=== PATIENT | female | born 1965 | race Caucasian/White ===

== ENCOUNTER → 2017-02-08 | Outpatient (CLI) | payer OTHER | LOC: RAD 02-05 08:00 | DX: R13.10 Dysphagia, unspecified (principal); K44.9 Diaphragmatic hernia without obstruction or gangrene; K21.9 Gastro-esophageal reflux disease without esophagitis | CPT/HCPCS: 74246 ==

== ENCOUNTER 2017-04-03 11:39 | Emergency (ER) | payer OTHER ==
[2017-04-03 13:13] LABS: HEMOGLOBIN 13.5 gm/dl (12.3-15.3); RED BLOOD COUNT 4.43 M/UL (4.00-5.10); WHITE BLOOD COUNT 8.1 K/UL (4.5-11.0)
[2017-04-03 13:43] LABS: BUN/CREATININE RATIO 14 (0-10)
== END 2017-04-03 14:37 | disposition home or self-care (01) ==
LOC: ER1 11:39
PROVIDERS: Physician Assistant
DX: E03.9 Hypothyroidism, unspecified (principal); R42 Dizziness and giddiness; I10 Essential (primary) hypertension; E07.9 Disorder of thyroid, unspecified; Z90.49 Acquired absence of other specified parts of digestive tract; F17.200 Nicotine dependence, unspecified, uncomplicated; Z88.5 Allergy status to narcotic agent
CPT/HCPCS: 36415; 70450; 71010; 80053; 81001; 82550; 82553; 83874; 84443; 84484; 85025; 93005; 96360; 99284

== ENCOUNTER 2021-05-04 18:32 | Inpatient (IN) | payer OTHER ==
[~2021-05-04] VITALS: Ht 165.1 cm; Wt 116.1 kg
[~2021-05-04 18:32] MED LIST: HYDROCHLOROTHIA25 MG PO; LASIX20 MG PO; PHYSICIANS1000 MCG/1 SC
[2021-05-04 19:11] LABS: HEMOGLOBIN 13.9 gm/dl (12.3-15.3); RED BLOOD COUNT 4.44 M/UL (4.00-5.10); WHITE BLOOD COUNT 11.9 K/UL (4.5-11.0)
[2021-05-04 19:33] LABS: BUN/CREATININE RATIO 13 (0-10)
[2021-05-05 02:29] LABS: HEMOGLOBIN 13.1 gm/dl (12.3-15.3); RED BLOOD COUNT 4.26 M/UL (4.00-5.10); WHITE BLOOD COUNT 10.6 K/UL (4.5-11.0)
[2021-05-05] MEDS ORDERED: DRISDOL1250 MCG PO (12:22)
[2021-05-05] MEDS ORDERED: SYNTHROID137 MCG PO (12:23)
[2021-05-05] MEDS ORDERED: TOPROL XL 50 MG50 MG PO (12:23)
[2021-05-05] MEDS ORDERED: MECLIZINE HCL25 MG PO (12:23)
[2021-05-05] MEDS ORDERED: ALEVE220 MG PO (13:55)
[2021-05-05] MEDS ORDERED: ATORVASTATIN CA20 MG PO (15:55)
[2021-05-05] MEDS ORDERED: NITROGLYCE20 MG/1 GM TD (15:55)
[2021-05-05] MEDS ORDERED: ASPIRIN EC81 MG PO (15:55)
== END 2021-05-06 00:10 | disposition short-term general hospital (02) | DRG 286 ==
LOC: ER1 18:32 → CDU 20:26 → PROG CARE 05-05 16:15
PROVIDERS: Emergency Medicine; ADMIT Internal Medicine
PROC: B2161ZZ Fluoroscopy of Right and Left Heart using Low Osmolar Contrast (ICD-10-PCS; principal; 2021-05-05)
PROC: 4A023N7 Measurement of Cardiac Sampling and Pressure, Left Heart, Percutaneous Approach (ICD-10-PCS; 2021-05-05)
PROC: 4A023N7 Measurement of Cardiac Sampling and Pressure, Left Heart, Percutaneous Approach (ICD-10-PCS; 2021-05-05)
DX: I25.110 Atherosclerotic heart disease of native coronary artery with unstable angina pectoris (principal); I50.21 Acute systolic (congestive) heart failure; Z68.41 Body mass index [BMI] 40.0-44.9, adult; E78.5 Hyperlipidemia, unspecified; I10 Essential (primary) hypertension; E03.9 Hypothyroidism, unspecified; E66.01 Morbid (severe) obesity due to excess calories; G47.33 Obstructive sleep apnea (adult) (pediatric); E53.8 Deficiency of other specified B group vitamins; E55.9 Vitamin D deficiency, unspecified; R51.9 Headache, unspecified; Z90.49 Acquired absence of other specified parts of digestive tract; Z72.0 Tobacco use; Z82.49 Family history of ischemic heart disease and other diseases of the circulatory system; Z95.1 Presence of aortocoronary bypass graft; Z90.710 Acquired absence of both cervix and uterus; Z88.6 Allergy status to analgesic agent; Z84.1 Family history of disorders of kidney and ureter; I25.5 Ischemic cardiomyopathy
CPT/HCPCS: ECHO; 71045; 80053; 80061; 82550; 82553; 83036; 83735; 83874; 83880; 84439; 84443; 84484; 85025; 85027; 85610; 85730; 93306; 96374; 99152; 99285; C1769; C1887; C1894; G0378; J1644; J2250; J2405; J3010; Q9967; U0002

== ENCOUNTER → 2021-06-11 | Outpatient (CLI) | payer OTHER ==
[~2021-06-11] MED LIST changes: +ALEVE220 MG PO; +ASPIRIN EC81 MG PO; +ATORVASTATIN CA20 MG PO; +DRISDOL1250 MCG PO; +MECLIZINE HCL25 MG PO; +NITROGLYCE20 MG/1 GM TD; +SYNTHROID137 MCG PO; +TOPROL XL 50 MG50 MG PO
== END ==
LOC: RAD 15:31
DX: R06.02 Shortness of breath (principal)
CPT/HCPCS: 71046

== ENCOUNTER 2022-01-16 12:41 | Emergency (ER) | payer OTHER, MEDICAID ==
[2022-01-16 13:18] LABS: HEMOGLOBIN 11.5 gm/dl (12.3-15.3); RED BLOOD COUNT 4.16 M/UL (4.00-5.10); WHITE BLOOD COUNT 6.2 K/UL (4.5-11.0)
[2022-01-16 20:42] LABS: HEMOGLOBIN 9.7 gm/dl (12.3-15.3)
[2022-01-16 20:44] LABS: RED BLOOD COUNT 3.54 M/UL (4.00-5.10); WHITE BLOOD COUNT 12.9 K/UL (4.5-11.0)
== END 2022-01-16 22:30 | disposition short-term general hospital (02) ==
LOC: ER1 12:41
PROVIDERS: Family Medicine
DX: I21.4 Non-ST elevation (NSTEMI) myocardial infarction (principal); A41.9 Sepsis, unspecified organism; M54.6 Pain in thoracic spine; N13.2 Hydronephrosis with renal and ureteral calculous obstruction; N39.0 Urinary tract infection, site not specified; E87.6 Hypokalemia; Z20.822 Contact with and (suspected) exposure to COVID-19; E11.65 Type 2 diabetes mellitus with hyperglycemia; D64.9 Anemia, unspecified; E87.1 Hypo-osmolality and hyponatremia; J44.9 Chronic obstructive pulmonary disease, unspecified; R00.0 Tachycardia, unspecified
CPT/HCPCS: 71045; 80053; 81001; 82550; 82553; 83605; 83690; 83874; 84484; 85025; 85610; 85730; 87040; 87077; 87086; 87186; 93005; 96374; 96375; 99285; J0696; J1644; J2405; J2550; J3480; U0002

== ENCOUNTER 2022-01-30 17:46 | Emergency (ER) | payer OTHER | END 2022-01-30 19:00 | disposition home or self-care (01) | LOC: ER1 17:46 | DX: Z45.2 Encounter for adjustment and management of vascular access device (principal); J44.9 Chronic obstructive pulmonary disease, unspecified; I10 Essential (primary) hypertension; Z88.1 Allergy status to other antibiotic agents; Z88.5 Allergy status to narcotic agent | CPT/HCPCS: 81001; 87086; 99283 ==

== ENCOUNTER → 2022-03-03 | Outpatient (CLI) | payer OTHER | LOC: KOH-I 10:01 | DX: R06.02 Shortness of breath (principal) | CPT/HCPCS: 71046 ==

== ENCOUNTER → 2022-03-12 | Outpatient (CLI) | payer OTHER | LOC: KOH-I 11:15 | DX: N20.0 Calculus of kidney (principal) | CPT/HCPCS: 74176 ==